=== PATIENT | female | born 1950 | race Caucasian/White ===

== ENCOUNTER → 2017-11-24 | Outpatient (CLI) | payer MEDICARE, OTHER ==
[~2017-11-24] MED LIST: ALBU90OI; ALLEGRA ALLERG180 MG; ALLO300; AZELASTINE137 MCG/0.; Aspir 8181 MG PO; DULO60; FAMO20; GABA100; GABA600; LEVSOD125 PO; LOVA40 PO; MELO7.5; METF500; METO25; Omeprazole20 M1; TIOT18
[2017-11-26 12:12] LABS: HPV Genotype 16 Not Detected (NOTDET); HPV Genotype 18 Not Detected (NOTDET)
[2017-11-29 12:35] LABS: HPV High Risk Other Not Detected (NOTDET)
== END ==
LOC: OLS 15:33
PROVIDERS: Obstetrics & Gynecology Gynecology
DX: Z91.89 Other specified personal risk factors, not elsewhere classified (principal)
CPT/HCPCS: 87624; G0123

== ENCOUNTER → 2019-02-23 | Outpatient (CLI) | payer MEDICARE ==
[2019-02-23 16:31] LABS: Source, Urine Clean Catch
[2019-02-23 17:21] LABS: Appearance, Urine Clear (Clear); Bilirubin, Urine Neg (Neg); Blood, Urine Neg (Neg); Color, Urine Yellow (P-Yellow); Glucose Qualitative, Urine Neg (Neg); Ketones, Urine Neg (Neg); Leukocyte Esterase, Urine Neg (Neg); Nitrite, Urine Neg (Neg); Protein, Urine Neg (Neg); Specific Gravity, Urine 1.015 (1.003-1.022); Urobilinogen, Urine NORM (Normal); pH, Urine 6.5 (5.0-8.0)
[2019-02-23 18:04] LABS: Bacteria Few /hpf; Red Blood Cells, Urine 0-2 /hpf (0-2); Squamous Epithelial Cells Few /hpf (Few); White Blood Cells, Urine 0-2 /hpf (0-5)
== END ==
LOC: LAB 16:30 → LAB SHORT 16:30 → LAB FUT 02-21 09:45
PROVIDERS: Obstetrics & Gynecology
DX: Z01.812 Encounter for preprocedural laboratory examination (principal); N39.41 Urge incontinence
CPT/HCPCS: 81001; 81003; 87086

== ENCOUNTER → 2019-05-02 | Outpatient (CLI) | payer MEDICARE | END | disposition home or self-care (01) | LOC: LAB SHORT 07:27 → PLD 07:27 | DX: L82.1 Other seborrheic keratosis (principal) | CPT/HCPCS: 88305 ==

== ENCOUNTER → 2019-05-17 | Outpatient (CLI) | payer MEDICARE ==
[2019-05-17 13:19] LABS: Source, Urine Clean Catch
[2019-05-17 14:51] LABS: Bacteria Few /hpf; Squamous Epithelial Cells Few /hpf (Few)
== END ==
LOC: LAB SHORT 13:17 → LAB 13:17 → LAB FUT 05-17 13:20
PROVIDERS: Obstetrics & Gynecology
DX: Z01.812 Encounter for preprocedural laboratory examination (principal); N39.46 Mixed incontinence
CPT/HCPCS: 81015; 87086

== ENCOUNTER → 2019-06-07 | Outpatient (CLI) | payer MEDICARE ==
[2019-06-07 13:30] LABS: Source, Urine Clean Catch
[2019-06-07 15:46] LABS: Bacteria Few /hpf; Red Blood Cells, Urine 0-2 /hpf (0-2); Squamous Epithelial Cells Few /hpf (Few); White Blood Cells, Urine 0-2 /hpf (0-5)
== END ==
LOC: LAB 13:27 → LAB SHORT 13:27
PROVIDERS: Obstetrics & Gynecology
DX: Z01.812 Encounter for preprocedural laboratory examination (principal); N39.46 Mixed incontinence
CPT/HCPCS: 81015; 87086; 87147

== ENCOUNTER → 2019-12-06 | Outpatient (CLI) | payer OTHER | END | disposition home or self-care (01) | LOC: PLD 08:40 → LAB SHORT 08:40 | DX: D48.5 Neoplasm of uncertain behavior of skin (principal) | CPT/HCPCS: 88305 ==

== ENCOUNTER → 2020-01-04 | Outpatient (CLI) | payer OTHER | END | disposition home or self-care (01) | LOC: PLD 07:44 → LAB SHORT 07:44 | DX: C44.41 Basal cell carcinoma of skin of scalp and neck (principal) | CPT/HCPCS: 88305 ==

== ENCOUNTER → 2020-05-28 | Outpatient (CLI) | payer OTHER ==
[2020-05-28 14:43] LABS: Creatinine, Blood 1.12 mg/dL (0.40-1.00)
== END ==
LOC: OLS 12:49 → LAB SHORT 12:49 → LAB FUT 11-10 11:25
PROVIDERS: Psychiatry & Neurology Neurology
DX: R26.81 Unsteadiness on feet (principal)
CPT/HCPCS: 36415; 82565; 84520

== ENCOUNTER → 2021-03-10 | Outpatient (CLI) | payer OTHER ==
[2021-03-14 11:09] LABS: M-SPIKE, % Not Observed % (Not Observed); PROTEIN,TOTAL,URINE 4.3 mg/dL (Not Estab.)
== END ==
LOC: PLD 07:20 → LAB SHORT 07:20
PROVIDERS: Internal Medicine
DX: E87.8 Other disorders of electrolyte and fluid balance, not elsewhere classified (principal)
CPT/HCPCS: 81050; 84156; 84166

== ENCOUNTER → 2021-07-19 | Outpatient (CLI) | payer OTHER ==
[2021-07-23 14:10] LABS: DOPAMINE, URINE 78 ug/L (Undefined)
[2021-07-24 04:10] LABS: 5-HIAA, URINE 10.9 mg/L (Undefined)
== END | disposition home or self-care (01) ==
LOC: LAB SHORT 12:28
PROVIDERS: Internal Medicine
DX: L74.9 Eccrine sweat disorder, unspecified (principal)
CPT/HCPCS: 81050; 82384; 83497; 83835

== ENCOUNTER → 2021-09-05 | Outpatient (CLI) | payer OTHER | END | disposition home or self-care (01) | LOC: LAB SHORT 11:13 | DX: C44.519 Basal cell carcinoma of skin of other part of trunk (principal); D22.5 Melanocytic nevi of trunk | CPT/HCPCS: 88305 ==

== ENCOUNTER → 2022-01-24 | Outpatient (CLI) | payer OTHER ==
[2022-01-24 11:48] LABS: Protein, Urine Quantitative 5.9 mg/dL (0.0-11.9)
[2022-01-24 12:06] LABS: Microalbumin, Urine Quant. <5.000 mg/L (0.000-20.000)
== END ==
LOC: LAB SHORT 09:46 → LAB FUT 03-20 16:35
PROVIDERS: Internal Medicine Nephrology
DX: N18.30 Chronic kidney disease, stage 3 unspecified (principal); N25.81 Secondary hyperparathyroidism of renal origin; E55.9 Vitamin D deficiency, unspecified; E78.00 Pure hypercholesterolemia, unspecified; R76.9 Abnormal immunological finding in serum, unspecified; R94.5 Abnormal results of liver function studies; R94.6 Abnormal results of thyroid function studies; D51.8 Other vitamin B12 deficiency anemias; D52.8 Other folate deficiency anemias; D50.9 Iron deficiency anemia, unspecified
CPT/HCPCS: 81050; 82043; 82570; 84156

== ENCOUNTER 2022-03-14 08:41 | Emergency (ER) | payer OTHER ==
[~2022-03-14] VITALS: Ht 162.6 cm; Wt 86.2 kg
[~2022-03-14 08:41] MED LIST changes: -GABA100; +GABA100 PO; -GABA600; +GABA600 PO; -METF500; +METF500 PO
[2022-03-14] MEDS ORDERED: ALDACTONE100 MG PO (09:01)
[2022-03-14] MEDS ORDERED: AMLODIPINE BESYL5 MG PO (09:02)
[2022-03-14] MEDS ORDERED: OMEP20ER PO (09:03)
[2022-03-14] MEDS ORDERED: HYDR1TAB94 PO (11:32)
== END 2022-03-14 11:58 | disposition home or self-care (01) ==
LOC: ER 08:41
DX: S42.292A Other displaced fracture of upper end of left humerus, initial encounter for closed fracture (principal); W01.0XXA Fall on same level from slipping, tripping and stumbling without subsequent striking against object, initial encounter; Y92.009 Unspecified place in unspecified non-institutional (private) residence as the place of occurrence of the external cause; Z79.82 Long term (current) use of aspirin; Z79.84 Long term (current) use of oral hypoglycemic drugs; Z79.899 Other long term (current) drug therapy; Z88.8 Allergy status to other drugs, medicaments and biological substances
CPT/HCPCS: 73060; J3010

== ENCOUNTER 2022-03-19 11:01 | Inpatient (IN) | payer OTHER ==
[~2022-03-19] VITALS: Ht 167.6 cm; Wt 85.7 kg
[~2022-03-19 11:01] MED LIST changes: +ALDACTONE100 MG PO; +AMLODIPINE BESYL5 MG PO; +DULO30 PO; -DULO60; +HYDR1TAB94 PO; +OMEP20ER PO
--- NOTE | 2022-03-19 11:56 | NUR ---
History, Chart, Medications and Allergies reviewed before start of procedure. Patient confirms NPO status and agrees with scheduled surgery.
--- NOTE | 2022-03-19 19:33 | NUR ---
SHIFT SUMMARY PATIENT NEW ADMIT TO UNIT POST OP LEFT TOTAL REVERSE SHOULDER REPLACEMENT FOLLOWING A GROUND LEVEL FALL AND SHOULDER FRACTURE AT HOME. LEFT SHOULDER AND ARM BRUISED. ARM NON-WEIGHT BEARING AND IN SLING. AQUACEL WNL. TOLERATING ADA DIET AND LIQUIDS. ROUTINE IV FLUIDS AND ABX. SCALENE BLOCK IN EFFECT, LEFT ARM NUMB, ABLE TO WIGGLE FINGERS. SBA WITH GAIT BELT TO BATHROOM. REPORT GIVEN TO BEARING GRINDER RN.
[2022-03-20 05:43] LABS: BASOPHILS ABSOLUTE AUTO 0.01 K/mm3 (0.00-0.23); BASOPHILS PERCENT AUTO 0 % (0-2); EOSINOPHILS PERCENT AUTO 0 % (0-6); Hemoglobin 8.1 g/dL (11.5-16.0); IMMATURE GRAN ABSOLUTE AUTO 0.03 K/mm3 (0.00-0.10); IMMATURE GRAN PERCENT AUTO 0 % (0-1); LYMPHOCYTES ABSOLUTE AUTO 0.67 K/mm3 (0.84-5.20); LYMPHOCYTES PERCENT AUTO 6 % (21-46); MONOCYTES ABSOLUTE AUTO 0.27 K/mm3 (0.16-1.47); MONOCYTES PERCENT AUTO 3 % (4-13); Mean Corpuscular HGB Conc 33.8 g/dL (31.5-36.5); Mean Corpuscular Volume 95 fL (80-100); Mean Platelet Volume 10.9 fL (9.1-12.4); NEUTROPHILS ABSOLUTE AUTO 9.67 K/mm3 (1.96-9.15); NEUTROPHILS PERCENT AUTO 91 % (41-73); Platelet Count 197 K/mm3 (150-400); RDW Coefficient Variation 13.7 % (11.7-14.2); RDW Standard Deviation 47.8 fL (35.1-46.3); Red Blood Cell Count 2.53 M/mm3 (3.80-5.20); White Blood Cell Count 10.65 K/mm3 (4.00-11.30)
[2022-03-20 06:02] LABS: Calcium, Blood 8.3 mg/dL (8.5-10.1); Creatinine, Blood 1.4 mg/dL (0.40-1.00); Potassium, Blood 5.3 mmol/L (3.5-5.5)
--- NOTE | 2022-03-20 07:12 | NUR ---
SONAR TECHNICIAN SUMMARY PT A&O X4 AND COOPERATIVE. LUE IN SLING. INCISION COVERED WITH AQUACEL AND C/D/I. PT ONLY VOIDING SMALL AMOUNTS AT START OF SHIFT, AND BLADDER SCAN SHOWED >500ML URINE. HOWEVER, PT BEGAN VOIDING LARGER AMOUNTS THIS AM. PT'S PAIN INCREASED THIS AM HER NERVE BLOCK WORE OFF. SHE WAS MEDICATED WITH OXYCODONE, PER EMAR. NO OTHER ACUTE CHANGES THIS SHIFT.
--- NOTE | 2022-03-20 11:07 | NUR ---
Spiritual Care - Pt. request Pt. is pleasant and welcomes my visit. Pt. has just previously met with PT and plans on being discharged today. Pt. is distressed about the spiritual condition of her . Listem empathetically with a calming presence. Establish rapport with Pt. and pt. displays evidence of engagement and trust. Pt. also displays evidence of being committed to her recovery. Prayed with Pt. Pt. verbalized gratitude for the spiritual care visit.
--- NOTE | 2022-03-20 11:31 | NUR ---
03/20/22 1131 Laura Beltran VERIFICATIONS: EDIT CHART.
--- NOTE | 2022-03-20 17:51 | NUR ---
DISCHARGE PT DISCHARGED AT 1745 WITH FAMILY VIA CAR. PT AND FAMILY IN AGREEMENT WITH DISCHARGE PLAN. PT VOIDING AND TOLERAING PO INTAKE. INDEPENDENTLY MOVING AROUND ROOM. ORIGIONAL COPY OF PRESCRIPTION PLACED IN PT DISCHARGE FOLDER AND GIVEN TO DAUGHTER.
== END 2022-03-20 17:45 | disposition home or self-care (01) | DRG 483 ==
LOC: SURS 11:01 → PRE IP 12:30 → SURS 16:16
PROVIDERS: ADMIT Orthopaedic Surgery
PROC: 0RRK00Z Replacement of Left Shoulder Joint with Reverse Ball and Socket Synthetic Substitute, Open Approach (ICD-10-PCS; principal; 2022-03-19 12:30)
DX: S42.352A Displaced comminuted fracture of shaft of humerus, left arm, initial encounter for closed fracture (principal); E11.9 Type 2 diabetes mellitus without complications; J44.9 Chronic obstructive pulmonary disease, unspecified; F03.90 Unspecified dementia, unspecified severity, without behavioral disturbance, psychotic disturbance, mood disturbance, and anxiety; M19.90 Unspecified osteoarthritis, unspecified site; E78.5 Hyperlipidemia, unspecified; I35.0 Nonrheumatic aortic (valve) stenosis; I10 Essential (primary) hypertension; E03.9 Hypothyroidism, unspecified; G47.33 Obstructive sleep apnea (adult) (pediatric); Z98.890 Other specified postprocedural states; Z98.84 Bariatric surgery status; Z90.710 Acquired absence of both cervix and uterus; Z98.51 Tubal ligation status; Z79.890 Hormone replacement therapy; Z79.84 Long term (current) use of oral hypoglycemic drugs; Z79.899 Other long term (current) drug therapy; Z88.8 Allergy status to other drugs, medicaments and biological substances; W01.198A Fall on same level from slipping, tripping and stumbling with subsequent striking against other object, initial encounter
CPT/HCPCS: 36415; 73030; 80048; 82947; 85025; 97110; 97116; 97162; 97166; 97530; 97535; A9270; C1713; C1776; J0171; J0690; J0735; J1100; J1815; J1885; J2250; J2370; J2405; J2704; J2795; J3010